=== PATIENT | female | born 1945 ===

== ENCOUNTER 2019-10-21 13:11 | Outpatient (CLI) | payer SELFPAY ==
--- NOTE | 2019-10-22 10:29 | Ultrasound Report ---
EXAMINATION: Right Limited Breast Ultrasound, 10/21/2019 INDICATION: Abnormal mammography COMPARISON: Right diagnostic mammogram at 2019, screening mammogram 09/01/2019, right breast ultras ound 10/07/2019 FINDINGS: Targeted ultrasound evaluation was performed of the area of interest. In the 10:00 region, 7 cm from the nipple, at the site of the hypoechogenicity of possible concern on last ultrasound, onl y mild fibrocystic change is seen with no discrete lesion. No shadowing lesion is noted. No mass is s een. The suggestion of a small cyst in this area persists. IMPRESSION: No significant lesion is seen Follow up recommendation: Routine BIRADS: 2: Benign Signer Name: Yosvany De Guzman MD Signed: 10/21/2019 3:30 PM Workstation Name: [id number]
== END 2019-10-21 13:12 | disposition home or self-care (01) ==
LOC: SPVWC 13:11
PROVIDERS: ATTEND Surgery
DX: R92.8 Other abnormal and inconclusive findings on diagnostic imaging of breast (principal)

== ENCOUNTER 2020-09-27 13:08 | Outpatient (CLI) | payer MEDICARE ==
--- NOTE | 2020-09-27 15:52 | Mammography Report ---
DIGITAL SCREENING MAMMOGRAM WITH CAD, 09/27/2020 CLINICAL INFORMATION / INDICATION: Routine screening mammography. TECHNIQUE: Digital bilateral 2D mammography was obtained in the craniocaudal and mediolateral obliqu e projections. This examination was interpreted with the benefit of Computer-Aided Detection analysis . COMPARISON: 08/29/2018 FINDINGS: Breast Density: The breasts are extremely dense, which lowers the sensitivity of mammography. No dominant mass, suspicious calcifications, or architectural distortion in either breast. Postsurgical scar left breast. Overall, no interval change. IMPRESSION: No mammographic evidence of malignancy. Follow up recommendation: Routine yearly BI-RADS Category 2: Benign. A "normal" or negative report should not discourage follow up or biopsy of a clinically significant f inding. A written summary of these findings will be mailed to the patient. The patient will be entered into a mammography reporting system which will generate a reminder letter for the patient's next appointmen t at the appropriate interval. The [employer] recommends yearly mammograms starting at age 40 and continuing as l jac as a woman is in good health. Breast MRI is recommended for women with an approximate 20-25% or greater lifetime risk of breast cancer, including women with a strong family history of breast or ova katie cancer or who have been treated for Hodgkin's disease. Signer Name: Merlyn Bone MD Signed: 09/27/2020 3:47 PM Workstation Name: [email or web address] ([email or web address]
== END 2020-09-27 13:09 | disposition home or self-care (01) ==
LOC: SPVWC 13:08
PROVIDERS: ATTEND Surgery
DX: Z12.31 Encounter for screening mammogram for malignant neoplasm of breast (principal); N64.89 Other specified disorders of breast
CPT/HCPCS: 77067